=== PATIENT | male | born 1985 | race Caucasian/White ===

== ENCOUNTER 2016-06-10 09:55 | Emergency (ER) | payer BC ==
[2016-06-10] MEDS ORDERED: DIAZEPAM 10 MG/2 ML SYR IVP ONE (10:13)
[2016-06-10] MEDS ORDERED: NS 1,000 ML IV ONE (10:13)
[2016-06-10] MEDS ORDERED: HYDROmorphONE/DILAUDID 1 MG/ML SYR IVP ONE (10:13)
--- NOTE | 2016-06-10 11:20 | EDPHY ---
H & P Stated Complaint: skiing monday/no known inj started with l lateral neck pain monday/ Time Seen by Provider: 06/10/16 10:08 HPI/ROS: Chief complaint: Neck pain History of present illness: This is a 31-year-old male who presents to the emergency department for evaluation and treatment of neck pain. Patient reports primarily pain on the left side of his neck although also over the spine to a lesser degree. Patient reports the onset of symptoms last Monday, 5 days ago. He states he was skiing the day before. States he woke up the next morning and his neck was sore. He did go to a concert that evening, he describes a metal rock concert that he was "head banging" at. He states since then the neck pain has been slowly worsening. States it is now hard to move the neck. He denies other potential precipitating events such as direct trauma. He denies other associated signs or symptoms including no fever, no headache, no pain in the rest of the back, no paresthesias, no weakness or paralysis, no bowel or bladder dysfunction. Review of systems: A 10 point review of systems was obtained and other than described above was negative - Personal History Current Tetanus/Diphtheria Vaccine: No - Medical/Surgical History Hx Asthma: No Hx Chronic Respiratory Disease: No Hx Diabetes: No Hx Cardiac Disease: No Hx Renal Disease: No Hx Cirrhosis: No Hx Alcoholism: No Hx HIV/AIDS: No Hx Splenectomy or Spleen Trauma: No Other PMH: denies - Social History Smoking Status: Never smoked - Physical Exam Exam: General Appearance: Alert, nontoxic. Eyes: Pupils equal and round no injection. ENT: No hemotympanum, no bergman sign, no raccoon eyes Respiratory: Chest is non tender, lungs are clear to auscultation. Cardiac: regular rate and rhythm Gastrointestinal: Abdomen is soft and non tender, no masses, bowel sounds normal. Musculoskeletal: Head is normocephalic, atraumatic. There is tenderness over the left trapezius muscle as well as over the lower cervical spine. The rest of the back including the thoracic, lumbar spine is nontender to palpation without crepitus, bony deformity or step-off. Patient is moving all extremities without difficulty. He is ambulating well. Skin: No rashes or lesions. Neurological: Alert and oriented x4. Cranial nerves 2-12 grossly intact. Strength and sensation intact and symmetrical. Constitutional: Initial Vital Signs Temperature (C) 36.3 C 06/10/16 09:59 Heart Rate 64 06/10/16 09:59 Respiratory Rate 18 06/10/16 09:59 Blood Pressure 128/73 H 06/10/16 09:59 O2 Sat (%) 98 06/10/16 09:59 O2 Delivery Mode Room Air Allergies/Adverse Reactions: No Known Allergies Allergy (Unverified 06/10/16 09:58) Home Medications: Medication Instructions Recorded Diazepam [Valium 2 MG (*)] 2 mg PO TID #10 tab 06/10/16 Estradiol 06/10/16 Crpydttwpp-Wgbfjamzare-TQP Tab 06/10/16 Hydrocodone/APAP 5/325 [[place] 1 tab PO Q4 #12 tab 06/10/16 5/325 (*)] Spironolactone 06/10/16 Medical Decision Making - Diagnostics Imaging: CT scan of the cervical spine negative for fracture, small a centric leftward prolapse of disc at C5-C6 ED Course/Re-evaluation: Patient seen under the supervision of my secondary supervising physician Dr. Clint Luque. Patient presents to the emergency department for neck pain that he has had for approximately a week. On presentation he is nontoxic. He is afebrile and vital signs are stable. Physical exam does reveal tenderness over the left trapezius region. However he did have some midline tenderness therefore a CT scan is obtained. No fracture is noted but a herniated cervical disc is noted. Patient is not complaining of any neurologic symptoms. He has a nonfocal neurologic exam. I believe he is appropriate for outpatient management. He is discharged home. Home care is discussed. He is asked to follow up with a spinal surgeon for further evaluation and care next week and referral information is provided. Strict return precautions are given. Patient voiced understanding and agreement with plan. Differential Diagnosis: Included but not limited to muscle spasms, torticollis, herniated intervertebral disc, spinal fracture, unlikely spinal mass - Data Points Medications Given: Discontinued Medications Diazepam (Valium Injection) 5 mg IVP EDNOW ONE Stop: 06/10/16 10:14 Last Admin: 06/10/16 11:05 Dose: 5 mg Hydromorphone HCl (Dilaudid) 0.5 mg IVP EDNOW ONE Stop: 06/10/16 10:14 Last Admin: 06/10/16 11:05 Dose: 0.5 mg Sodium Chloride (Ns) 1,000 mls @ 0 mls/hr IV ONCE ONE PRN Reason: Wide Open Stop: 06/10/16 10:14 Last Admin: 06/10/16 11:00 Dose: 1,000 mls Departure - Departure Disposition: Home, Routine, Self-Care Clinical Impression: Herniated cervical disc Condition: Good Instructions: Cervical Disc Herniation (ED) Additional Instructions: Follow-up with a spine doctor next week for recheck In regards to pain control see the following: Use ibuprofen [600] mg [3] times a day for the next 2-3 days for pain In addition You have been prescribed [[place]] for pain. [[place]] contains Tylenol, do not take extra Tylenol/acetaminophen/Apap with it. It is sedating. You have also been prescribed Valium as a muscle relaxer, please noted is sedating If symptoms worsen or new symptoms develop return to the emergency department for recheck Referrals: NONE *PRIMARY CARE P,. [Primary Care Provider] - As per Instructions Sathya Celis MD [Medical Doctor] - As per Instructions Prescriptions: Diazepam [Valium 2 MG (*)] 2 mg PO TID #10 tab Hydrocodone/APAP 5/325 [[place] 5/325 (*)] 1 tab PO Q4 #12 tab
[2016-06-10 11:58] VITALS: BP 106/68; PULSE 70; RESP 16; TEMP 97.5; O2SAT 94
== END 2016-06-10 11:58 | disposition home or self-care (01) ==
DX: M50.10 Cervical disc disorder with radiculopathy, unspecified cervical region (principal)
CPT/HCPCS: 96374; J1170

== ENCOUNTER 2017-06-18 03:08 | Emergency (ER) | payer SELFPAY ==
[2017-06-18 03:15] VITALS: RESP 16; TEMP 97.3
[2017-06-18] MEDS ORDERED: ONDANSETRON 4 MG/2 ML VIAL IVP ONE (03:44)
[2017-06-18] MEDS ORDERED: NS 1,000 ML IV ONE ×2 (03:44→04:18)
[2017-06-18] MEDS ORDERED: HYDROmorphONE/DILAUDID 2 MG/ML INJ IVP ONE (03:44)
--- NOTE | 2017-06-18 03:52 | EDPHY ---
H & P Stated Complaint: EPIGASTRIC/RUQ PAIN Time Seen by Provider: 06/18/17 03:15 HPI/ROS: HPI CHIEF COMPLAINT: Right upper quadrant abdominal pain since midnight HISTORY OF PRESENT ILLNESS: This patient is a 32-year-old male, is otherwise healthy does not take any daily medications he presents emergency room with right upper quadrant abdominal pain. States this started around midnight. He ate [employer] around 8:30 p.m.. Describes the pain as sharp stabbing in his right upper quadrant is rather constant but comes in peaks. Denies vomiting or fever. Denies chest pain or shortness of breath. Denies pleuritic pain. Past Medical History: Denies significant medical history Past Surgical History: Denies significant surgical history Social History: Denies daily use drugs alcohol tobacco products. Family History: Noncontributory ROS REVIEW OF SYSTEMS: A comprehensive 10 point review of systems is otherwise negative aside from elements mentioned in the history of present illness. Exam Constitutional appears well nontoxic triage nursing summary reviewed, vital signs reviewed, awake/alert. Eyes normal conjunctivae and sclera, EOMI, PERRLA. HENT normal inspection, atraumatic, moist mucus membranes, no epistaxis, neck supple/ no meningismus, no raccoon eyes. Respiratory clear to auscultation bilaterally, normal breath sounds, no respiratory distress, no wheezing. Cardiovascular rate normal, regular rhythm, no murmur, no edema, distal pulses normal. Gastrointestinal tender palpation the right upper quadrant, no rebound, no guarding, normal bowel sounds, no distension, no pulsatile mass. Genitourinary no CVA tenderness. Musculoskeletal no midline vertebral tenderness, full range of motion, no calf swelling, no tenderness of extremities, no meningismus, good pulses, neurovascularly intact. Skin pink, warm, & dry, no rash, skin atraumatic. Neurologic awake, alert and oriented x 3, AAOx3, moves all 4 extremities equally, motor intact, sensory intact, CN II-XII intact, normal cerebellar, normal vision, normal speech. Psychiatric normal mood/affect. Heme/Lymph/Immune no lymphadenopathy. Differential diagnosis includes but is not limited to and in no particular order : Bowel obstruction, appendicitis, gallbladder disease, diverticulitis, colitis , enteritis, perforated viscus, gastritis, GERD, esophagitis, urinary tract infection, pyelonephritis, kidney stones Medical Decision Making: Plan for this patient IV establishment IV blood draw, ultrasound right upper quadrant to evaluate for gallstones biliary colic or acute cholecystitis, IV Dilaudid for pain control, IV Zofran for nausea IV fluids, re-evaluate. Re-evaluation: Ultrasound of the gallbladder shows a gallbladder full of gallstones. There is 1 that is impacted into the gallbladder neck. The CBD is 4 mm. He does have a positive sonographic Kwon sign. 0425: Plan for this patient be admitted to the hospital for gallbladder pain pain control gallstones and further evaluation for possible acute cholecystitis. 0434: Spoke with surgery Dr. Servin, who agrees to admit this patient. IV Invanz has been ordered. Source: Patient - Personal History Current Tetanus Diphtheria and Acellular Pertussis (TDAP): Yes - Medical/Surgical History Hx Asthma: No Hx Chronic Respiratory Disease: No Hx Diabetes: No Hx Cardiac Disease: No Hx Renal Disease: No Hx Cirrhosis: No Hx Alcoholism: No Hx HIV/AIDS: No Hx Splenectomy or Spleen Trauma: No Other PMH: denies - Social History Smoking Status: Never smoked Constitutional: Initial Vital Signs Temperature (C) 36.3 C 06/18/17 03:13 Heart Rate 77 06/18/17 03:13 Respiratory Rate 16 06/18/17 03:13 Blood Pressure 153/82 H 06/18/17 03:13 O2 Sat (%) 99 06/18/17 03:13 O2 Delivery Mode Room Air Allergies/Adverse Reactions: No Known Allergies Allergy (Verified 06/18/17 03:12) Home Medications: Medication Instructions Recorded NK [No Known Home Meds] 06/18/17 Medical Decision Making - Data Points Laboratory Results: Laboratory Results 06/18/17 03:50 06/18/17 03:50 06/18/17 06/18/17 06/18/17 04:00 03:50 03:50 WBC RBC Hgb Hct MCV MCH MCHC RDW Plt Count MPV Neut % (Auto) Lymph % (Auto) [place] % (Auto) Eos % (Auto) Baso % (Auto) Nucleat RBC Rel Count Absolute Neuts (auto) Absolute Lymphs (auto) Absolute Monos (auto) Absolute Eos (auto) Absolute Basos (auto) Absolute Nucleated RBC Immature Gran % Immature Gran # PT 12.6 SEC SEC (12.0-15.0) INR 0.92 (0.83-1.16) APTT 29.2 SEC SEC (23.0-38.0) VBG Lactic Acid 2.3 mmol/L H mmol/L (0.7-2.1) Sodium 145 mEq/L mEq/L (135-145) Potassium 3.6 mEq/L mEq/L (3.5-5.2) Chloride 103 mEq/L mEq/L (97-110) Carbon Dioxide 24 mEq/l mEq/l (22-31) Anion Gap 18 mEq/L H mEq/L (8-16) BUN 14 mg/dL mg/dL (7-23) Creatinine 0.8 mg/dL mg/dL (0.7-1.3) Estimated GFR > 60 Glucose 94 mg/dL mg/dL (70-100) Calcium 9.9 mg/dL mg/dL (8.5-10.4) Total Bilirubin 0.7 mg/dL mg/dL (0.1-1.4) Conjugated Bilirubin 0.5 mg/dL mg/dL (0.0-0.5) Unconjugated Bilirubin 0.2 mg/dL mg/dL (0.0-1.1) AST 29 IU/L IU/L (17-59) ALT 48 IU/L IU/L (21-72) Alkaline Phosphatase 74 IU/L IU/L (38-126) Troponin I < 0.012 ng/mL ng/mL (0.000-0.034) Total Protein 8.1 g/dL g/dL (6.3-8.2) Albumin 4.9 g/dL g/dL (3.5-5.0) Lipase 187 IU/L IU/L (23-300) 1818 03:50 WBC 7.69 10^3/uL 10^3/uL (3.80-9.50) RBC 5.49 10^6/uL 10^6/uL (4.40-6.38) Hgb 16.9 g/dL g/dL (13.7-17.5) Hct 48.3 % % (40.0-51.0) MCV 88.0 fL fL (81.5-99.8) MCH 30.8 pg pg (27.9-34.1) MCHC 35.0 g/dL g/dL (32.4-36.7) RDW 13.4 % % (11.5-15.2) Plt Count 215 10^3/uL 10^3/uL (150-400) MPV 10.4 fL fL (8.7-11.7) Neut % (Auto) 58.7 % % (39.3-74.2) Lymph % (Auto) 30.7 % % (15.0-45.0) [place] % (Auto) 6.9 % % (4.5-13.0) Eos % (Auto) 2.6 % % (0.6-7.6) Baso % (Auto) 0.7 % % (0.3-1.7) Nucleat RBC Rel Count 0.0 % % (0.0-0.2) Absolute Neuts (auto) 4.52 10^3/uL 10^3/uL (1.70-6.50) Absolute Lymphs (auto) 2.36 10^3/uL 10^3/uL (1.00-3.00) Absolute Monos (auto) 0.53 10^3/uL 10^3/uL (0.30-0.80) Absolute Eos (auto) 0.20 10^3/uL 10^3/uL (0.03-0.40) Absolute Basos (auto) 0.05 10^3/uL 10^3/uL (0.02-0.10) Absolute Nucleated RBC 0.00 10^3/uL 10^3/uL (0-0.01) Immature Gran % 0.4 % % (0.0-1.1) Immature Gran # 0.03 10^3/uL 10^3/uL (0.00-0.10) PT INR APTT VBG Lactic Acid Sodium Potassium Chloride Carbon Dioxide Anion Gap BUN Creatinine Estimated GFR Glucose Calcium Total Bilirubin Conjugated Bilirubin Unconjugated Bilirubin AST ALT Alkaline Phosphatase Troponin I Total Protein Albumin Lipase Medications Given: Discontinued Medications Hydromorphone HCl (Dilaudid) 1 mg IVP EDNOW ONE Stop: 06/18/17 03:45 Last Admin: 06/18/17 03:53 Dose: 1 mg Sodium Chloride (Ns) 1,000 mls @ 0 mls/hr IV EDNOW ONE; Wide Open PRN Reason: Protocol Stop: 06/18/17 03:45 Last Admin: 06/18/17 03:53 Dose: 1,000 mls Ondansetron HCl (Zofran) 4 mg IVP EDNOW ONE Stop: 06/18/17 03:45 Last Admin: 06/18/17 03:53 Dose: 4 mg Departure - Departure Disposition: [facility] Acute Clinical Impression: Gallstones Condition: Good
[2017-06-18 04:01] LABS: PLATELET COUNT 215 10^3/uL (150-400)
[2017-06-18 04:09] LABS: INR 0.92 (0.83-1.16); PROTIME(PATIENT) 12.6 SEC (12.0-15.0)
[2017-06-18] MEDS ORDERED: ERTAPENEM 1 GM VIAL IV ONE (04:24)
[2017-06-18 04:41] VITALS: O2SAT 98
--- NOTE | 2017-06-18 05:23 | PDCONSULT ---
Scanner Operator Note: Chief complaint: Right upper quadrant abdominal pain History of present illness: This is a 32-year-old gentleman who presents to the hospital with several hours of intractable right upper quadrant abdominal pain after eating and topical bowel 4 hr earlier. Patient has never had any pain like this in the past she rates the pain 10/10. Help with medication. Pain is in the right upper quadrant radiating slightly towards the back. Denies any nausea vomiting. Has not had a acholic stools. No exacerbating condition. Past medical history: Seasonal allergies Past surgical history: None Allergies no known drug allergies Family history: Paternal grandfather [place], maternal grandfather colon cancer Review of systems significant for desire for gender reassignment hormones all others reviewed and are negative Home Medications Antihistamines Social history: Denies smoking. Positive for alcohol but no drug use Alert oriented to person place and time Anicteric sclerae. Pupils 3 mm reactive Trachea midline no JVD No supraclavicular cervical adenopathy Lungs clear bilaterally no wheezes or rales Regular rate and rhythm no murmurs S1 and S2 audible Abdomen soft minimal tenderness in the right upper quadrant no Kwon sign at this point no hepatosplenomegaly no scars Extremities without edema 2+ over 2+ femoral pulses Good range of motion all 4 extremities Normal affect and behavior Skin normal turgor and tone no jaundice Impression: Colic secondary to biliary stones normal white blood cell count Plan: P. O. Challenge if the patient is able to tolerate food will range from to come back to the office as an outpatient. He will likely need cholecystectomy laparoscopic is the standard of care and the likely be done as an outpatient. Risks benefits and alternatives to surgery including bleeding infection, injury to biliary system requiring further intervention. Verbal confirmation of understanding was obtained.
[2017-06-18 06:57] VITALS: BP 126/79; PULSE 88
== END 2017-06-18 06:57 | disposition home or self-care (01) ==
LOC: UNDOADMOB 04:29
DX: K80.20 Calculus of gallbladder without cholecystitis without obstruction (principal); E86.9 Volume depletion, unspecified
CPT/HCPCS: 96374; J1170; J1335; J2405